=== PATIENT | male | born 1945 | race Caucasian/White ===

== ENCOUNTER 2016-07-31 21:12 | Emergency (ER) | payer MEDICARE ==
[~2016-07-31] VITALS: Ht 172.7 cm; Wt 87.6 kg
[2016-07-31 21:15] VITALS: TEMP 36.5; Ht 172.7 cm; Wt 87.6 kg
[2016-07-31] MEDS ORDERED: TICA1TAB PO (21:34)
[2016-07-31] MEDS ORDERED: METO25TA3 PO ×2 (21:34→21:46)
[2016-07-31] MEDS ORDERED: LPT/20 PO (21:34)
[2016-07-31] MEDS ORDERED: LISI-725 PO ×2 (21:34→21:46)
[2016-07-31] MEDS ORDERED: ASPI81TA28 PO (21:34)
[2016-07-31] MEDS ORDERED: DICLTAB4 PO (21:34)
[2016-07-31] MEDS ORDERED: LISINOPRIL 20 MG TAB PO STA (21:42)
[2016-07-31] MEDS ORDERED: METOPROLOL SUCC 25MG EXT REL TAB PO ONE (21:45)
--- NOTE | 2016-07-31 22:08 | EMERGENCY ROOM VISIT NOTE ---
History First contact with patient: 21:32 Chief Complaint: MEDICATION REFILL REQUEST Stated Complaint: HIGH BP,DOES NOT HAVE MED W/ HIM History of Present Illness The patient is a 71 year old male who presents to the Emergency Room with complaints of elevated blood pressure. The patient is visiting for graduation weekend, and unfortunately a family member of his became ill and is admitted to this facility. The patient initially expected to be in the [place] area for one day, and did not bring any of his medication with him. He states his home is around 3 hours away, and he is unable to go home to get his medicine. He has a known history of hypertension and is concerned that his blood pressure is elevated. He takes lisinopril and metoprolol on a daily basis. He is requesting a few days supply as he expects to go home in the next 2-3 days. He does not have other complaints. He is without chest pain, chest tightness, or shortness of breath. No lightheadedness, dizziness, or numbness. He rates his discomfort a 0/10. Review of Systems More than 10 systems were reviewed and otherwise negative with the exception of history of present illness. Past Medical/Surgical History History of hypertension Family History No pertinent family history Social History Smoking Status: Current Every Day Smoker Current/Historical Medications Scheduled Aspirin (Aspirin Ec), 81 MG PO DAILY Atorvastatin (Atorvastatin Calcium), 20 MG PO HS Lisinopril (Zestril), 20 MG PO DAILY Metoprolol Succinate (Toprol Xl), 25 MG PO DAILY Metoprolol Succinate (Toprol Xl), 1 TAB PO DAILY Ticagrelor (Brilinta), 90 MG PO BID Scheduled PRN Diclofenac W/ Misoprostol (Arthrotec), 1 TAB PO TID PRN for Arthritic Pain/ Swelling Allergies Coded Allergies: No Known Allergies (Unverified , 07/31/16) Physical Exam Vital Signs Date Time Temp Pulse Resp B/P Pulse Ox O2 Delivery O2 Flow Rate FiO2 07/31/16 21:15 36.5 70 16 206/88 97 Room Air Physical Exam VITALS: Vitals are noted on the nurse's note and reviewed by myself. Vital signs with elevated blood pressure GENERAL: Well-developed, well-nourished, white male, who is in no acute distress and resting comfortably. Patient is cooperative with the examination. HEAD: Normocephalic atraumatic. HEART: Regular rate and rhythm without murmurs gallops or rubs. LUNGS: Clear to auscultation bilaterally without wheezes, rales or rhonchi. No retractions or accessory muscle use. MUSCULOSKELETAL: No muscle atrophy, erythema, or edema noted. Medical Decision & Procedures ED Course Physical exam and history were performed. Nursing notes and EMR were reviewed. Patient appears to have a history of hypertension. The patient is requesting a refill of his hypertensive medications. He is with hypertension here in the department, but he does not have other symptoms. He did not take his medications today because of his social circumstances. His presentation is most consistent with essential chronic hypertension. The patient was given a dose of his lisinopril and metoprolol here in the department. I will give him a week supply prescription of each. The patient is invited back to the ER with any new, worsening, or concerning symptoms. He was pleased with this plan and rated his discomfort a 0/10 at the time of departure. The chart was completed utilizing [employer] Voice Recognition Software. Grammatical errors, random word insertions, pronoun errors, and incomplete sentences are an occasional consequence of this system due to software limitations, ambient noise, and hardware issues. Any formal questions or concerns about the content, text, or information contained within the body of this dictation should be directly addressed to the provider for clarification. . Medical Decision Differential diagnosis: Etiologies such as benign hypertension, hypertensive emergency, cardiovascular pathology, pheochromocytoma, electrolyte abnormality, renal disease, endorgan damage, as well as others were entertained. Impression Primary Impression: Hypertension Departure Information Dispostion Home / Self-Care Condition GOOD Prescriptions Metoprolol Succinate (TOPROL XL) 25 Mg Tabcr 1 TAB PO DAILY for 7 Days, #7 TAB 0 Refills Prov: David Ricketts PA-C 07/31/16 Lisinopril (Zestril) 20 Mg Tab 20 MG PO DAILY for 7 Days, #7 TAB Prov: David Ricketts PA-C 07/31/16 Forms HOME CARE DOCUMENTATION FORM, IMPORTANT VISIT INFORMATION Patient Instructions My [facility] Additional Instructions You were seen and evaluated today on an emergency basis only. This is not a substitute for, or an effort to provide, complete comprehensive medical care. It is not possible to recognize and treat all injuries or illnesses in a single emergency department visit. For this reason it is recommended that you followup with your primary care physician with any ongoing or persistent symptoms. Continue your lisinopril and metoprolol as prescribed. You are welcome to return to the emergency department anytime with new, worsening, or concerning symptoms.
[2016-07-31 22:13] VITALS: BP 177/104; PULSE 72; O2SAT 99
== END 2016-07-31 22:14 | disposition home or self-care (01) ==
LOC: C.EDB 21:15 → C.EDD 22:14
DX: I10 Essential (primary) hypertension (principal); Z79.82 Long term (current) use of aspirin; Z79.899 Other long term (current) drug therapy; F17.200 Nicotine dependence, unspecified, uncomplicated